=== PATIENT | male | born 1930 | race Caucasian/White ===

== ENCOUNTER 2017-02-26 16:31 | Emergency (ER) | payer MEDICARE, OTHER ==
[~2017-02-26] VITALS: Ht 175.3 cm; Wt 63.5 kg
[~2017-02-26 16:31] MED LIST: ALB0.5V INH; PRD20T PO
[2017-02-26] MEDS ORDERED: RT-ALBUTEROL/IPRATROPIUM 3 ML (DUONEB) VIAL ONE (16:34)
[2017-02-26] MEDS ORDERED: methylPREDNISolone 125 MG (Solu-MEDROL) VIAL IVP ONE (16:45)
--- NOTE | 2017-02-26 16:45 | ED Respiratory ---
General Chief Complaint: Respiratory Problems Stated Complaint: TROUBLE BREATHING, R SWOLLEN ANKLE Source: patient Exam Limitations: no limitations History of Present Illness Time seen by provider: 16:42 Initial Comments Brought to ER by his neighbor from home where he resides by himself with reports of worsening shortness of breath and right ankle pain. Patient states that he's been short of breath his whole life and he smokes about a pack of cigarettes per day and has done so for many years. He does have COPD. His shortness of breath has been worse for the past 3-4 days with an increase in cough but the absence of fevers or chills. Continues to smoke. He also reports right ankle pain despite no injury for the past week or so as well. He does not have a physician and takes no medication other than an over-the- counter aspirin daily. He does report that he's had a poor appetite lately as well as some weight loss that is unintentional. Timing/Duration: week, getting worse Associated Symptoms: cough, shortness of breath, wheezing Allergies and Home Medications Allergies Coded Allergies: No Known Drug Allergies (Unverified , 07/24/13) Home Medications Prednisone 20 Mg Tab, 40 MG PO DAILY, #6 Prescribed by: DAE CALERO on 02/26/178 Constitutional: see HPI EENTM: see HPI Respiratory: see HPI, cough, dyspnea on exertion, phlegm, short of breath Cardiovascular: no symptoms reported Genitourinary: no symptoms reported Skin: no symptoms reported Psychiatric/Neurological: No Symptoms Reported Hematologic/Lymphatic: No Symptoms Reported Immunological/Allergic: no symptoms reported Past Rtzmkib-Enhebg-Faeaqj Hx Patient Social History Recent Foreign Travel: No Contact w/Someone Who Travel: No Immunizations Up To Date Date of Pneumonia Vaccine: Jul 04, 2004 Respiratory Respiratory Disorders: Emphysema Physical Exam Vital Signs Vital Sign - Last 12Hours 02/26/17 16:32 Temp 98.2 Pulse 79 Resp 18 B/P (MAP) 189/87 Pulse Ox 94 O2 Delivery Nasal Cannula O2 Flow Rate 3.00 Capillary Refill : General Appearance: WD/WN, moderate distress, cachetic, other (upon arrival to ER his initial SPO2 is 82 percent on room air with pursed lip breathing noted. Diminished lung sounds throughout. Patient is foul-smelling, unkempt and has feces between his toes) HEENT: PERRL/EOMI, normal ENT inspection Neck: non-tender, full range of motion Respiratory: no respiratory distress, no accessory muscle use Cardiovascular: regular rate, rhythm Gastrointestinal: normal bowel sounds, non tender, soft Neurologic/Psychiatric: alert, normal mood/affect, oriented x 3 Skin: normal color, warm/dry Progress/Results/Core Measures Results/Orders Lab Results Laboratory Tests Test 02/26/17 16:40 02/26/17 16:50 Range/Units White Blood Count 9.5 4.3-11.0 10^3/uL Red Blood Count 4.44 4.35-5.85 10^6/uL Hemoglobin 14.4 13.3-17.7 G/DL Hematocrit 43 40-54 % Mean Corpuscular Volume 97 80-99 FL Mean Corpuscular Hemoglobin 32 25-34 PG Mean Corpuscular Hemoglobin Concent 33 32-36 G/DL Red Cell Distribution Width 14.1 10.0-14.5 % Platelet Count 329 130-400 10^3/uL Mean Platelet Volume 9.4 7.4-10.4 FL Neutrophils (%) (Auto) 53 42-75 % Lymphocytes (%) (Auto) 35 12-44 % Monocytes (%) (Auto) 8 0-12 % Eosinophils (%) (Auto) 3 0-10 % Basophils (%) (Auto) 1 0-10 % Neutrophils # (Auto) 5.1 1.8-7.8 X 10^3 Lymphocytes # (Auto) 3.4 1.0-4.0 X 10^3 Monocytes # (Auto) 0.8 0.0-1.0 X 10^3 Eosinophils # (Auto) 0.3 0.0-0.3 10^3/uL Basophils # (Auto) 0.1 0.0-0.1 10^3/uL Sodium Level 139 135-145 MMOL/L Potassium Level 4.4 3.6-5.0 MMOL/L Chloride Level 105 98-107 MMOL/L Carbon Dioxide Level 24 21-32 MMOL/L Anion Gap 10 5-14 MMOL/L Blood Urea Nitrogen 17 7-18 MG/DL Creatinine 1.04 0.60-1.30 MG/DL Estimat Glomerular Filtration Rate > 60 BUN/Creatinine Ratio 16 Glucose Level 99 70-105 MG/DL Uric Acid 4.0 2.6-7.2 MG/DL Calcium Level 9.1 8.5-10.1 MG/DL Magnesium Level 2.0 1.8-2.4 MG/DL Total Bilirubin 0.5 0.1-1.0 MG/DL Aspartate Amino Transf (AST/SGOT) 17 5-34 U/L Alanine Aminotransferase (ALT/SGPT) 15 0-55 U/L Alkaline Phosphatase 65 40-136 U/L Troponin I < 0.30 <0.30 NG/ML B-Type Natriuretic Peptide 47.7 <100.0 PG/ML Total Protein 7.4 6.4-8.2 GM/DL Albumin 3.8 3.2-4.5 GM/DL Blood Gas Puncture Site RIGHT RADIAL Blood Gas Patient Temperature 97.5 Arterial Blood pH 7.44 H 7.37-7.43 Arterial Blood Partial Pressure CO2 35 35-45 MMHG Arterial Blood Partial Pressure O2 85 79-93 MMHG Arterial Blood HCO3 23 23-27 MMOL/L Arterial Blood Total CO2 24.3 21.0-31.0 MMOL/L Arterial Blood Oxygen Saturation 98 94-100 % Arterial Blood Base Excess -0.6 -2.5-2.5 MMOL/L Tolu Test POSITIVE Blood Gas Ventilator Setting NO Blood Gas Inspired Oxygen 3L My Orders Orders - DAE CALERO APRN Cbc With Automated Diff (02/26/17 16:41) Comprehensive Metabolic Panel (02/26/17 16:41) Arterial Blood Gas (02/26/17 16:41) Ekg Tracing (02/26/17 16:41) Chest Pa/Lat (2 View) (02/26/17 16:41) Saline Lock/Iv-Start (02/26/17 16:41) BNP (02/26/17 16:41) Troponin I (02/26/17 16:41) Magnesium (02/26/17 16:41) Uric Acid (02/26/17 16:41) Ankle, Right, 3 Views (02/26/17 16:41) Methylprednisolone Sod Succ (Solu-Medrol (02/26/17 16:45) Ct Chest W (02/26/17 17:20) Iohexol Injection (Omnipaque 350 Mg/Ml 1 (02/26/17 17:45) Ns (Ivpb) (Sodium Chloride 0.9% Ivpb Bag (02/26/17 17:45) Ct Abdomen/Pelvis Wo (02/26/17 18:04) Medications Given in ED Current Medications Medications Dose Ordered Sig/Shaggy Route Start Time Stop Time Status Last Admin Dose Admin Albuterol/ Ipratropium 3 ml STK-MED ONCE .ROUTE 02/26/17 16:34 02/26/17 16:41 DC 02/26/17 16:45 3 ML Iohexol 75 ml ONCE ONCE IV 02/26/17 17:45 02/26/17 17:46 DC 02/26/17 17:49 75 ML Methylprednisolone Sodium Succinate 125 mg ONCE ONCE IVP 02/26/17 16:45 02/26/17 16:46 DC 02/26/17 16:56 125 MG Sodium Chloride 100 ml ONCE ONCE IV 02/26/17 17:45 02/26/17 17:46 DC 02/26/17 17:49 80 ML Vital Signs/I&O Vital Sign - Last 12Hours 02/26/17 02/26/17 16:32 16:45 Temp 98.2 Pulse 79 Resp 18 B/P (MAP) 189/87 Pulse Ox 94 O2 Delivery Nasal Cannula Nasal Cannula O2 Flow Rate 3.00 3.00 Departure Communication Progress Notes 1817- as mentioned the patient's oxygen saturation was 80 percent on arrival to ER. Initially he has some findings on his CT of the pelvis very concerning. I've advised that he should be admitted for further treatment. He insists "no , I will not stay. I'm going home". he has no children and no one has power of dental hygiene instructor over him. He refuses to stay despite the obvious need to. I discussed with him the risks of going home. He still wishes to go home. He states that he does have a nebulizer machine at home and will take breathing treatments. Impression Impression: Primary Impression: Chronic obstructive lung disease Additional Impressions: Hydronephrosis, left Bladder outlet obstruction presumed prostate cancer Disposition: 01 HOME, SELF-CARE Condition: Stable/Unchanged Departure-Patient Inst. Decision time for Depature: 18:21 Referrals: NO,LOCAL PHYSICIAN (PCP/Family) Primary Care Physician Patient Instructions: Chronic Bronchitis (DC) Add. Discharge Instructions: Status care with one of the physicians listed 2. Return to ER for any concerns 3. All discharge instructions reviewed with patient and/or family. Voiced understanding. Scripts Prednisone (Prednisone) 20 Mg Tab 40 MG PO DAILY, #6 TAB Prov: DAE CALERO APRN 02/26/17 Work/School Note: Local Medical Staff Listing DAE CALERO APRN Feb 26, 2017 16:45
[2017-02-26 16:55] LABS: BASOPHILS # (AUTO) 0.1 10^3/uL (0.0-0.1); BASOPHILS % (AUTO) 1 % (0-10); EOSINOPHILS # (AUTO) 0.3 10^3/uL (0.0-0.3); EOSINOPHILS % (AUTO) 3 % (0-10); LYMPHOCYTES # (AUTO) 3.4 X 10^3 (1.0-4.0); LYMPHOCYTES % (AUTO) 35 % (12-44); MEAN CORPUSCULAR HEMOGLOBIN 32 PG (25-34); MEAN CORPUSCULAR HGB CONC 33 G/DL (32-36); MEAN CORPUSCULAR VOLUME 97 FL (80-99); MEAN PLATELET VOLUME 9.4 FL (7.4-10.4); MONOCYTES # (AUTO) 0.8 X 10^3 (0.0-1.0); MONOCYTES % (AUTO) 8 % (0-12); NEUTROPHILS # (AUTO) 5.1 X 10^3 (1.8-7.8); NEUTROPHILS % (AUTO) 53 % (42-75); PLATELET COUNT 329 10^3/uL (130-400); RED BLOOD COUNT 4.44 10^6/uL (4.35-5.85); RED CELL DISTRIBUTION WIDTH 14.1 % (10.0-14.5); WHITE BLOOD COUNT 9.5 10^3/uL (4.3-11.0)
[2017-02-26 16:56] LABS: ABG BASE EXCESS -0.6 MMOL/L (-2.5-2.5); ABG HCO3 23 MMOL/L (23-27); ABG OXYGEN SATURATION 98 % (94-100); ABG PCO2 35 MMHG (35-45); ABG PH 7.44 (7.37-7.43); ABG PO2 85 MMHG (79-93); ABG TCO2 24.3 MMOL/L (21.0-31.0)
[2017-02-26 17:00] LABS: ALLENS TEST POSITIVE; PATIENT TEMP 97.5
[2017-02-26 17:05] LABS: ALANINE AMINOTRANSFERASE 15 U/L (0-55); ALBUMIN 3.8 GM/DL (3.2-4.5); ANION GAP 10 MMOL/L (5-14); ASPARTATE AMINO TRANSFERASE 17 U/L (5-34); BILIRUBIN,TOTAL 0.5 MG/DL (0.1-1.0); BLOOD UREA NITROGEN 17 MG/DL (7-18); BUN/CREATININE RATIO 16; CALCIUM 9.1 MG/DL (8.5-10.1); CARBON DIOXIDE 24 MMOL/L (21-32); CHLORIDE 105 MMOL/L (98-107); CREATININE SERUM 1.04 MG/DL (0.60-1.30); GFR ESTIMATED > 60; GLUCOSE 99 MG/DL (70-105); POTASSIUM 4.4 MMOL/L (3.6-5.0); SODIUM 139 MMOL/L (135-145); TOTAL PROTEIN 7.4 GM/DL (6.4-8.2)
[2017-02-26 17:11] LABS: TROPONIN I < 0.30 NG/ML (<0.30)
--- NOTE | 2017-02-26 17:24 | Diagnostic Imaging Report ---
INDICATION: Dyspnea. PA and lateral views of the chest are obtained. Comparison is made to study of 07/24/2013. FINDINGS: Heart size and pulmonary vascularity are within normal limits. There is extensive air trapping bilaterally with an upper lobe predominance. No pneumothorax or consolidation is identified. Mildly prominent interstitial markings in the lung bases have not significantly changed. There is diffuse thoracic spondylosis without evidence of significant pleural fluid. IMPRESSION: Findings are compatible with emphysema and chronic interstitial markings likely due to COPD. There is no acute abnormality or significant change identified. Dictated by: Dictated on workstation # [id number]
--- NOTE | 2017-02-26 17:25 | Diagnostic Imaging Report ---
INDICATION: Right ankle pain. EXAMINATION: AP, oblique and lateral views of the right ankle were obtained. FINDINGS: Note is made of ankle swelling. There are also atherosclerotic calcifications. There is no evidence of acute fracture or malalignment. IMPRESSION: Ankle swelling without acute osseous abnormality identified. Dictated by: Dictated on workstation # [id number]
[2017-02-26] MEDS ORDERED: NS 100 ML (IVPB) BAG IV ONE (17:45)
[2017-02-26] MEDS ORDERED: IOHEXOL 350 MG/ML 100 ML (OMNIPAQUE 350) VIAL IV ONE (17:45)
--- NOTE | 2017-02-26 18:12 | Diagnostic Imaging Report ---
PROCEDURE: CT chest with contrast only. TECHNIQUE: Multiple contiguous axial images were obtained through the chest after administration of intravenous contrast. INDICATION: Dyspnea. FINDINGS: There is marked centrilobular emphysema throughout the lungs; however, no consolidation is identified. There is no definite lung mass; however, note is made of an approximately 0.4 cm subpleural nodule in the basilar aspect of the right upper lobe with an approximately 0.3 x 0.6 cm nodule in the subpleural aspect of the lateral segment of the right middle lobe. There is no significant pleural or pericardial fluid. There is mild aortic atherosclerotic calcification. No pathologic adenopathy is identified. There is diffuse thoracic spondylosis. Upper abdominal sections reveal what appears to be marked hydronephrosis of the left kidney. IMPRESSION: 1. Extensive centrilobular emphysema likely related to COPD. Micronodules are seen in the right lung which may be due to scarring. If indicated, followup study could be performed in six months to document stability. 2. There does appear to be marked left hydronephrosis. Dictated by: Dictated on workstation # [id number]
[2017-02-26] MEDS ORDERED: PRD20T PO (18:18)
--- NOTE | 2017-02-26 18:20 | Diagnostic Imaging Report ---
PROCEDURE: CT abdomen and pelvis without contrast. TECHNIQUE: Multiple contiguous axial images were obtained through the abdomen and pelvis without the use of intravenous contrast. INDICATION: Abdominal distention. FINDINGS: No focal hepatic or splenic abnormality is identified. There is mild hiatal hernia noted. Contrast administered previously is in the delayed phase. There is excretion of contrast from both kidneys with marked left hydronephrosis. In addition, there is enlargement of the urinary bladder which appears to be related to enlargement of the prostate gland which protrudes into the bladder base and may partially obstruct bladder outlet. There is mural thickening of the bladder indicating chronic nature. There is fluid distention of bowel, diffusely. No definite bowel obstruction is identified. There is minimal peritoneal fluid noted. IMPRESSION: Left hydronephrosis and bladder enlargement. This may be related to extensive enlargement of the prostate gland which protrudes into the bladder base with evidence of urinary bladder trabeculation. Otherwise, no acute abnormality is seen. Dictated by: Dictated on workstation # [id number]
[2017-02-26] MEDS ORDERED: RX-ALBUTEROL NEB 2.5 MG/3 ML PACK #5 IH STA (18:28)
[2017-02-26 18:40] VITALS: BP 157/88
== END 2017-02-26 18:40 | disposition home or self-care (01) ==
LOC: EDUNIT# 16:31 → ER 16:33
DX: J44.9 Chronic obstructive pulmonary disease, unspecified (principal); N13.1 Hydronephrosis with ureteral stricture, not elsewhere classified
CPT/HCPCS: 36415; 71020; 71260; 73610; 74176; 80053; 82805; 83735; 83880; 84484; 84550; 85025; 93005; 94640; 96374

== ENCOUNTER 2017-07-07 15:14 | Emergency (ER) | payer MEDICARE, OTHER ==
[~2017-07-07] VITALS: Ht 172.7 cm; Wt 72.6 kg
[2017-07-07] MEDS ORDERED: RT-ALBUTEROL/IPRATROPIUM 3 ML (DUONEB) VIAL ONE (15:24)
[2017-07-07] MEDS ORDERED: RT-ALBUTEROL/IPRATROPIUM 3 ML (DUONEB) VIAL INH ONE (15:30)
--- NOTE | 2017-07-07 15:30 | ED Cough/URI ---
General Chief Complaint: Respiratory Problems Stated Complaint: SOB,LT LEG SWELLING Nursing Triage Note: PATIENT STATES THAT HE IS HAVING DIFFICULTIES BREATHING. HE IS AUDIBLY WHEEZY WITH RESP RATE 30S. ALSO STATES THAT HIS LEFT LEG IS SWOLLEN. BOTH APPEAR EDEMATOUS ON OBSERVATION. Source: patient Exam Limitations: no limitations History of Present Illness Time seen by provider: 15:27 Initial Comments To ER by a neighbor with reports of difficulties breathing for several days more than usual though he states he has been short of breath for 20 years secondary to heavy cigarette smoking. Greater than one pack per day which he currently still does. He denies fevers or chills. He also reports left leg swelling since yesterday. He lives at home alone in the portable conditions according to neighbors. I've taken care of him several months ago in similar circumstances and he refuses to be admitted to the hospital. He is alert and oriented to person place time and situation and no one has guardianship over him. Again today, he states he will not be admitted to the hospital under any circumstances and states "if I'm going to , Im going to do at home with my boots on" Timing/Duration: constant, getting worse Severity/Quality: dry cough Associated Symptoms: cough Allergies and Home Medications Allergies Coded Allergies: No Known Drug Allergies (Unverified , 07/24/13) Home Medications Cephalexin 500 Mg Capsule, 500 MG PO TID, #21 Prescribed by: DAE CALERO on 07/07/17 1618 Prednisone 20 Mg Tab, 40 MG PO DAILY, #6 Prescribed by: DAE CALERO on 02/26/17 1818 Prednisone 20 Mg Tab, 40 MG PO DAILY, #8 Prescribed by: DAE CALERO on 07/07/17 1618 Sulfamethoxazole/Trimethoprim 1 Each Tablet, 1 EACH PO BID, #14 Prescribed by: DAE CALERO on 07/07/17 1618 Constitutional: see HPI EENTM: see HPI Respiratory: see HPI, cough, short of breath, wheezing Genitourinary: no symptoms reported Musculoskeletal: no symptoms reported Skin: no symptoms reported Psychiatric/Neurological: No Symptoms Reported Past Udrlyfr-Zlqvxg-Rfviai Hx Patient Social History Type Used: Cigarettes Recent Foreign Travel: No Contact w/Someone Who Travel: No Recent Infectious Disease Expo: No Immunizations Up To Date Date of Pneumonia Vaccine: Jul 04, 2004 Surgeries History of Surgeries: No Respiratory History of Respiratory Disorde: Yes Respiratory Disorders: Emphysema Cardiovascular History of Cardiac Disorders: Yes Neurological History of Neurological Disord: No Gastrointestinal History of Gastrointestinal Di: No Endocrine History of Endocrine Disorders: No Cancer History of Cancer: No Psychosocial History of Psychiatric Problem: No Integumentary History of Skin or Integumenta: No Physical Exam Vital Signs Vital Sign - Last 12Hours 07/07/17 15:22 Temp 97.9 Pulse 88 Resp 30 B/P (MAP) 129/69 (89) Pulse Ox 98 O2 Delivery Room Air Capillary Refill : Less Than 3 Seconds General Appearance: WD/WN, moderate distress (dyspneic with prolonged expiratory phase and pursed lip breathing) Eyes: Bilateral Eye Normal Inspection, Bilateral Eye PERRL, Bilateral Eye EOMI HEENT: PERRL/EOMI, normal ENT inspection Neck: non-tender, full range of motion Respiratory: normal breath sounds, no respiratory distress, no accessory muscle use Cardiovascular: regular rate, rhythm, no murmur Gastrointestinal: normal bowel sounds, non tender, soft Extremities: normal range of motion, non-tender, other (both legs are swollen left greater than right with an ulcer on the left leg to the lateral aspect. There is some drainage from this. A culture has been collected and sent to lab. Very foul-smelling drainage. Patient's toenails are about 1-3 inches in length on each of his toes. There is dried fecal matter on the plantar surface of his feet.) Neurologic/Psychiatric: alert, normal mood/affect, oriented x 3 Skin: normal color, warm/dry Focused Exam Evaluation Lactate Level Laboratory Tests 07/07/17 15:41: Lactic Acid Level 2.12*H Lactic Acid Level Laboratory Tests Test 07/07/17 15:41 Lactic Acid Level 2.12 MMOL/L (0.50-2.00) *H Progress/Results/Core Measures Suspected Sepsis Recent Fever Within 48 Hours: No Infection Criteria Present: Suspected New Infection New/Unexplained Altered Menta: No Sepsis Screen: No Definite Risk Sepsis Diagnosis: SIRS Temperature:97.9 Pulse: 88 Respiratory Rate: 30 Laboratory Tests 07/07/17 15:33: White Blood Count 11.6H Blood Pressure 129 /69 Mean: 89 Laboratory Tests 07/07/17 15:41: Lactic Acid Level 2.12*H Laboratory Tests 07/07/17 15:33: Creatinine 1.20, Platelet Count 354, Total Bilirubin 0.2 Results/Orders Lab Results Laboratory Tests Test 07/07/17 15:33 07/07/17 15:41 Range/Units White Blood Count 11.6 H 4.3-11.0 10^3/uL Red Blood Count 3.64 L 4.35-5.85 10^6/uL Hemoglobin 11.9 L 13.3-17.7 G/DL Hematocrit 32 L 40-54 % Mean Corpuscular Volume 87 80-99 FL Mean Corpuscular Hemoglobin 33 25-34 PG Mean Corpuscular Hemoglobin Concent 38 H 32-36 G/DL Red Cell Distribution Width 13.4 10.0-14.5 % Platelet Count 354 130-400 10^3/uL Mean Platelet Volume 8.9 7.4-10.4 FL Neutrophils (%) (Auto) 65 42-75 % Lymphocytes (%) (Auto) 26 12-44 % Monocytes (%) (Auto) 7 0-12 % Eosinophils (%) (Auto) 2 0-10 % Basophils (%) (Auto) 0 0-10 % Neutrophils # (Auto) 7.5 1.8-7.8 X 10^3 Lymphocytes # (Auto) 3.0 1.0-4.0 X 10^3 Monocytes # (Auto) 0.8 0.0-1.0 X 10^3 Eosinophils # (Auto) 0.2 0.0-0.3 10^3/uL Basophils # (Auto) 0.1 0.0-0.1 10^3/uL Sodium Level 142 135-145 MMOL/L Potassium Level 4.6 3.6-5.0 MMOL/L Chloride Level 107 98-107 MMOL/L Carbon Dioxide Level 24 21-32 MMOL/L Anion Gap 11 5-14 MMOL/L Blood Urea Nitrogen 29 H 7-18 MG/DL Creatinine 1.20 0.60-1.30 MG/DL Estimat Glomerular Filtration Rate 57 BUN/Creatinine Ratio 24 Glucose Level 106 H 70-105 MG/DL Calcium Level 8.9 8.5-10.1 MG/DL Total Bilirubin 0.2 0.1-1.0 MG/DL Aspartate Amino Transf (AST/SGOT) 20 5-34 U/L Alanine Aminotransferase (ALT/SGPT) 18 0-55 U/L Alkaline Phosphatase 59 40-136 U/L Total Protein 7.2 6.4-8.2 GM/DL Albumin 3.7 3.2-4.5 GM/DL Lactic Acid Level 2.12 *H 0.50-2.00 MMOL/L My Orders Orders - DAE CALERO APRN Cbc With Automated Diff (07/07/17 15:26) Comprehensive Metabolic Panel (07/07/17 15:26) Saline Lock/Iv-Start (07/07/17 15:26) Blood Culture (07/07/17 15:26) Lactic Acid Analyzer (07/07/17 15:26) Albuterol/Ipra Inhalation Soln (Duoneb I (07/07/17 15:30) Svn Sm Volume Nebulizer Rt-Rfs (07/07/17 15:26) Wound Culture (07/07/17 15:26) Methylprednisolone Sod Succ (Solu-Medrol (07/07/17 15:45) Ceftriaxone Injection (Rocephin Injectio (07/07/17 15:45) Chest 1 View, Ap/Pa Only (07/07/17 15:44) Medications Given in ED Current Medications Medications Dose Ordered Sig/Shaggy Route Start Time Stop Time Status Last Admin Dose Admin Ceftriaxone Sodium 1000 mg/ Sodium Chloride 50 ml @ 100 mls/hr ONCE ONCE IV 07/07/17 15:45 07/07/17 16:14 DC 07/07/17 16:11 100 MLS/HR Methylprednisolone Sodium Succinate 125 mg ONCE ONCE IVP 07/07/17 15:45 07/07/17 15:46 DC 07/07/17 15:53 125 MG Vital Signs/I&O Vital Sign - Last 12Hours 07/07/17 07/07/17 07/07/17 15:22 15:30 16:21 Temp 97.9 97.9 Pulse 88 88 Resp 30 30 B/P (MAP) 129/69 (89) Pulse Ox 98 98 98 O2 Delivery Room Air Room Air Room Air Capillary Refill : Less Than 3 Seconds Blood Pressure Mean: 89 Departure Communication (Admissions) Progress Notes Due to the patient's poor living conditions I did report this to Department of children and families with report number [id number] and the gentleman taking report was Jarret Bashir. Impression Impression: Primary Impression: Chronic obstructive lung disease Additional Impression: Cellulitis of left leg Disposition: HOME, SELF-CARE Condition: Stable Departure-Patient Inst. Decision time for Depature: 16:16 Referrals: NO,LOCAL PHYSICIAN (PCP) Primary Care Physician Patient Instructions: Cellulitis (Skin Infection), Adult (DC), Chronic Obstructive Pulmonary Disease (COPD), Including Emphysema Add. Discharge Instructions: 1. Return to ER for any concerns 2. Medication as directed 3. All discharge instructions reviewed with patient and/or family. Voiced understanding. Scripts Prednisone (Prednisone) 20 Mg Tab 40 MG PO DAILY, #8 TAB Prov: DAE CALERO APRN 07/07/17 Cephalexin (Keflex) 500 Mg Capsule 500 MG PO TID, #21 CAP Prov: DAE CALERO APRN 07/07/17 Sulfamethoxazole/Trimethoprim (Bactrim Ds Tablet) 1 Each Tablet 1 EACH PO BID, #14 TAB Prov: DAE CALERO APRN 07/07/17 DAE CALERO APRN Jul 07, 2017 15:30
[2017-07-07 15:42] LABS: BASOPHILS # (AUTO) 0.1 10^3/uL (0.0-0.1); BASOPHILS % (AUTO) 0 % (0-10); EOSINOPHILS # (AUTO) 0.2 10^3/uL (0.0-0.3); EOSINOPHILS % (AUTO) 2 % (0-10); HEMATOCRIT 32 % (40-54); HEMOGLOBIN 11.9 G/DL (13.3-17.7); LYMPHOCYTES % (AUTO) 26 % (12-44); MEAN CORPUSCULAR HEMOGLOBIN 33 PG (25-34); MEAN CORPUSCULAR HGB CONC 38 G/DL (32-36); MEAN CORPUSCULAR VOLUME 87 FL (80-99); MEAN PLATELET VOLUME 8.9 FL (7.4-10.4); MONOCYTES # (AUTO) 0.8 X 10^3 (0.0-1.0); MONOCYTES % (AUTO) 7 % (0-12); NEUTROPHILS # (AUTO) 7.5 X 10^3 (1.8-7.8); NEUTROPHILS % (AUTO) 65 % (42-75); PLATELET COUNT 354 10^3/uL (130-400); RED BLOOD COUNT 3.64 10^6/uL (4.35-5.85); RED CELL DISTRIBUTION WIDTH 13.4 % (10.0-14.5); WHITE BLOOD COUNT 11.6 10^3/uL (4.3-11.0)
[2017-07-07] MEDS ORDERED: methylPREDNISolone 125 MG (Solu-MEDROL) VIAL IVP ONE (15:45)
[2017-07-07] MEDS: cefTRIAXone INJECTION 1,000 MG in NS (IVPB) 50 ML IV ONE ×2 (15:55→16:11)
[2017-07-07 16:00] LABS: ALBUMIN 3.7 GM/DL (3.2-4.5); BILIRUBIN,TOTAL 0.2 MG/DL (0.1-1.0); CALCIUM 8.9 MG/DL (8.5-10.1); CREATININE SERUM 1.2 MG/DL (0.60-1.30); POTASSIUM 4.6 MMOL/L (3.6-5.0); TOTAL PROTEIN 7.2 GM/DL (6.4-8.2)
[2017-07-07] MEDS ORDERED: PRD20T PO (16:18)
[2017-07-07] MEDS ORDERED: SULF1TAB35 PO (16:18)
[2017-07-07] MEDS ORDERED: CEPH-507 PO (16:18)
[2017-07-07 16:21] VITALS: BP 129/69
--- NOTE | 2017-07-07 16:26 | Diagnostic Imaging Report ---
EXAMINATION: Portable erect AP chest at 04:01 p.m. INDICATION: Shortness of breath. FINDINGS: The heart size is within normal limits and stable when compared to 02/26/2017. The emphysematous changes involving both lungs seen on the prior study are again evident and no different. There is no sign of failure, pneumonia or pleural effusion to indicate an acute abnormality. The mediastinum is not widened. The osseous structures are intact. IMPRESSION: There are chronic pulmonary changes present, but there is no sign of an acute cardiopulmonary abnormality. Dictated by: Dictated on workstation # [id number]
--- OUTSIDE RECORDS SUMMARY | 2017-07-08 23:17 | XMS REPORT | Continuity of Care Document ---
Author Author [facility] Organization [facility] Address Unknown Phone Unavailable Allergies Active Description Code Type Severity Reaction Onset Reported/Identified Relationship to Patient Clinical Status Yes No Known Drug Allergies [id number] Drug Allergy Unknown N/A 07/24/2013 Medications There is no data. 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 02/28/2017 DAE CALERO APRN, Ot R06.02 SHORTNESS OF BREATH Procedures There is no data. Results Test Result Range Complete blood count (CBC) with automated white blood cell (WBC) differential - 02/26/17 16:40 Blood leukocytes automated count (number/volume) 9.5 10*3/uL 4.3-11.0 Blood erythrocytes automated count (number/volume) 4.44 10*6/uL 4.35-5.85 Venous blood hemoglobin measurement (mass/volume) 14.4 g/dL 13.3-17.7 Blood hematocrit (volume fraction) 43 % 40-54 Automated erythrocyte mean corpuscular volume 97 [foz_us] 80-99 Automated erythrocyte mean corpuscular hemoglobin (mass per erythrocyte) 32 pg 25-34 Automated erythrocyte mean corpuscular hemoglobin concentration measurement ( mass/volume) 33 g/dL 32-36 Automated erythrocyte distribution width ratio 14.1 % 10.0-14.5 Automated blood platelet count (count/volume) 329 10*3/uL 130-400 Automated blood platelet mean volume measurement 9.4 [foz_us] 7.4-10.4 Automated blood neutrophils/100 leukocytes 53 % 42-75 Automated blood lymphocytes/100 leukocytes 35 % 12-44 Blood monocytes/100 leukocytes 8 % 0-12 Automated blood eosinophils/100 leukocytes 3 % 0-10 Automated blood basophils/100 leukocytes 1 % 0-10 Blood neutrophils automated count (number/volume) 5.1 10*3 1.8-7.8 Blood lymphocytes automated count (number/volume) 3.4 10*3 1.0-4.0 Blood monocytes automated count (number/volume) 0.8 10*3 0.0-1.0 Automated eosinophil count 0.3 10*3/uL 0.0-0.3 Automated blood basophil count (count/volume) 0.1 10*3/uL 0.0-0.1 Comprehensive metabolic panel - 02/26/17 16:40 Serum or plasma sodium measurement (moles/volume) 139 mmol/L 135-145 Serum or plasma potassium measurement (moles/volume) 4.4 mmol/L 3.6-5.0 Serum or plasma chloride measurement (moles/volume) 105 mmol/L 98-107 Carbon dioxide 24 mmol/L 21-32 Serum or plasma anion gap determination (moles/volume) 10 mmol/L 5-14 Serum or plasma urea nitrogen measurement (mass/volume) 17 mg/dL 7-18 Serum or plasma creatinine measurement (mass/volume) 1.04 mg/dL 0.60-1.30 Serum or plasma urea nitrogen/creatinine mass ratio 16 NRG Serum or plasma creatinine measurement with calculation of estimated glomerular filtration rate > NRG Serum or plasma glucose measurement (mass/volume) 99 mg/dL 70-105 Serum or plasma calcium measurement (mass/volume) 9.1 mg/dL 8.5-10.1 Serum or plasma total bilirubin measurement (mass/volume) 0.5 mg/dL 0.1-1.0 Serum or plasma alkaline phosphatase measurement (enzymatic activity/volume) 65 U/L 40-136 Serum or plasma aspartate aminotransferase measurement (enzymatic activity/ volume) 17 U/L 5-34 Serum or plasma alanine aminotransferase measurement (enzymatic activity/volume ) 15 U/L 0-55 Serum or plasma protein measurement (mass/volume) 7.4 g/dL 6.4-8.2 Serum or plasma albumin measurement (mass/volume) 3.8 g/dL 3.2-4.5 Serum or plasma uric acid measurement (mass/volume) - 02/26/17 16:40 Serum or plasma uric acid measurement (mass/volume) 4.0 mg/dL 2.6-7.2 Magnesium - 02/26/17 16:40 Magnesium 2.0 mg/dL 1.8-2.4 Serum or plasma troponin i.cardiac measurement (mass/volume) - 02/26/17 16:40 Serum or plasma troponin i.cardiac measurement (mass/volume) < ng/ mL <0.30 Serum or plasma lithium measurement (moles/volume) - 02/26/17 16:40 BNP level 47.7 pg/mL <100.0 Arterial blood gas measurement - 02/26/17 16:50 Blood pCO2 35 mm[Hg] 35-45 Blood pO2 85 mm[Hg] 79-93 Arterial blood bicarbonate measurement (moles/volume) 23 mmol/L 23-27 Arterial blood base excess by calculation -0.6 mmol/L - 2.5-2.5 Arterial blood oxygen saturation measurement 98 % 94-100 * Inhaled oxygen flow rate 3L NRG Arterial blood pH measurement with patient temperature correction 7.44 7.37-7.43 Arterial blood carbon dioxide, total measurement (moles/volume) 24.3 mmol/L 21.0-31.0 Body site RIGHT RADIAL NRG Assessment of wrist artery patency prior to arterial puncture POSITIVE NRG Setting of ventilation mode NO NRG Measurement of body temperature 97.5 NRG Complete blood count (CBC) with automated white blood cell (WBC) differential - 07/07/17 15:33 Blood leukocytes automated count (number/volume) 11.6 10*3/uL 4.3-11.0 Blood erythrocytes automated count (number/volume) 3.64 10*6/uL 4.35-5.85 Venous blood hemoglobin measurement (mass/volume) 11.9 g/dL 13.3-17.7 Blood hematocrit (volume fraction) 32 % 40-54 Automated erythrocyte mean corpuscular volume 87 [foz_us] 80-99 Automated erythrocyte mean corpuscular hemoglobin (mass per erythrocyte) 33 pg 25-34 Automated erythrocyte mean corpuscular hemoglobin concentration measurement ( mass/volume) 38 g/dL 32-36 Automated erythrocyte distribution width ratio 13.4 % 10.0-14.5 Automated blood platelet count (count/volume) 354 10*3/uL 130-400 Automated blood platelet mean volume measurement 8.9 [foz_us] 7.4-10.4 Automated blood neutrophils/100 leukocytes 65 % 42-75 Automated blood lymphocytes/100 leukocytes 26 % 12-44 Blood monocytes/100 leukocytes 7 % 0-12 Automated blood eosinophils/100 leukocytes 2 % 0-10 Automated blood basophils/100 leukocytes 0 % 0-10 Blood neutrophils automated count (number/volume) 7.5 10*3 1.8-7.8 Blood lymphocytes automated count (number/volume) 3.0 10*3 1.0-4.0 Blood monocytes automated count (number/volume) 0.8 10*3 0.0-1.0 Automated eosinophil count 0.2 10*3/uL 0.0-0.3 Automated blood basophil count (count/volume) 0.1 10*3/uL 0.0-0.1 Comprehensive metabolic panel - 07/07/17 15:33 Serum or plasma sodium measurement (moles/volume) 142 mmol/L 135-145 Serum or plasma potassium measurement (moles/volume) 4.6 mmol/L 3.6-5.0 Serum or plasma chloride measurement (moles/volume) 107 mmol/L 98-107 Carbon dioxide 24 mmol/L 21-32 Serum or plasma anion gap determination (moles/volume) 11 mmol/L 5-14 Serum or plasma urea nitrogen measurement (mass/volume) 29 mg/dL 7-18 Serum or plasma creatinine measurement (mass/volume) 1.20 mg/dL 0.60-1.30 Serum or plasma urea nitrogen/creatinine mass ratio 24 NRG Serum or plasma creatinine measurement with calculation of estimated glomerular filtration rate 57 NRG Serum or plasma glucose measurement (mass/volume) 106 mg/dL 70-105 Serum or plasma calcium measurement (mass/volume) 8.9 mg/dL 8.5-10.1 Serum or plasma total bilirubin measurement (mass/volume) 0.2 mg/dL 0.1-1.0 Serum or plasma alkaline phosphatase measurement (enzymatic activity/volume) 59 U/L 40-136 Serum or plasma aspartate aminotransferase measurement (enzymatic activity/ volume) 20 U/L 5-34 Serum or plasma alanine aminotransferase measurement (enzymatic activity/volume ) 18 U/L 0-55 Serum or plasma protein measurement (mass/volume) 7.2 g/dL 6.4-8.2 Serum or plasma albumin measurement (mass/volume) 3.7 g/dL 3.2-4.5 Gram stain microscopy - 07/07/17 15:33 GRAM STAIN RESULT NO WBC'S OR BACTERIA OBSERVED NRG Bacteria identification in wound by culture - 07/07/17 15:33 Bacteria identification in wound by culture [id number] NRG QUANTITY OF GROWTH Abundant Growth NRG Blood lactic acid measurement (moles/volume) - 07/07/17 15:41 Blood lactic acid measurement (moles/volume) 2.12 mmol/L 0.50-2.00 Encounters ACCT No. Visit Date/Time Discharge Status Pt. Type Provider Facility Loc./Unit Complaint [id number] 02/26/2017 16:33:00 02/26/2017 18:40:00 DIS Emergency DAE CALERO APRN [facility] ER TROUBLE BREATHING, R SWOLLEN ANKLE [id number] 07/24/2013 10:07:00 07/24/2013 12:45:00 DIS Emergency [id number] 07/07/2017 15:44:00 Document Registration
== END 2017-07-07 16:50 | disposition home or self-care (01) ==
LOC: EDUNIT# 15:14 → ER 15:16
DX: J44.9 Chronic obstructive pulmonary disease, unspecified (principal); L03.116 Cellulitis of left lower limb
CPT/HCPCS: 36415; 71045; 80053; 83605; 85025; 87040; 87070; 87077; 87186; 87205; 94640; 94664; 96365; 96375